=== PATIENT | male | born 1975 | race Caucasian/White ===

== ENCOUNTER 2018-05-29 10:55 | Emergency (ER) | payer MEDICAID ==
[~2018-05-29] VITALS: Ht 177.8 cm; Wt 77.1 kg
[2018-05-29] MEDS ORDERED: KETOROLAC TROMETHAMINE INJ 60 MG/2 ML VIAL IM ONE ×2 (11:18→11:30)
[2018-05-29] MEDS ORDERED: DEXAMETHASONE SOD PHOSPHATE 10 MG/ML VIAL ONE (11:18)
[2018-05-29] MEDS ORDERED: CYCLOBENZAPRINE 10 MG TABLET ONE (11:19)
[2018-05-29] MEDS ORDERED: DEXAMETHASONE SOD PHOSPHATE 4 MG/ML VIAL IM ONE (11:30)
[2018-05-29] MEDS ORDERED: CYCLOBENZAPRINE 10 MG TABLET PO ONE (11:30)
[2018-05-29 12:10] VITALS: BP 122/72
== END 2018-05-29 12:23 | disposition home or self-care (01) ==
LOC: ER 11:04
DX: M54.5 Low back pain (principal); G89.29 Other chronic pain
CPT/HCPCS: 96372 ×2; 99283; J1100; J1885

== ENCOUNTER 2018-08-01 09:33 | Emergency (ER) | payer MEDICAID ==
[~2018-08-01] VITALS: Ht 177.8 cm; Wt 72.6 kg
[2018-08-01 09:40] VITALS: BP 108/77
== END 2018-08-01 10:03 | disposition home or self-care (01) ==
LOC: ER 09:33
DX: J32.8 Other chronic sinusitis (principal)

== ENCOUNTER 2019-08-14 11:21 | Emergency (ER) | payer SELFPAY ==
[~2019-08-14] VITALS: Ht 175.3 cm; Wt 68.9 kg
[2019-08-14 12:16] VITALS: BP 109/65
--- NOTE | 2019-08-14 13:14 | NUR ---
PT SEEN AND EXAMINED BY .
[2019-08-14] MEDS ORDERED: ONDANSETRON 4 MG TAB.RAPDIS ONE (13:29)
[2019-08-14] MEDS ORDERED: MORPHINE SULFATE INJ 4 MG/ML DISP.SYRIN ONE (13:29)
[2019-08-14] MEDS ORDERED: ONDANSETRON HCL/PF 4 MG/2 ML VIAL IV ONE (13:30)
[2019-08-14] MEDS ORDERED: MORPHINE SULFATE INJ 2 MG/ML DISP.SYRIN IV ONE (13:30)
--- NOTE | 2019-08-14 13:40 | NUR ---
Patient discharged to home in stable condition. Written and verbal after care instructions given. Patient verbalizes understanding of instruction.
[2019-08-14] MEDS ORDERED: ONDANSETRON 4 MG TAB.RAPDIS SL ONE (14:00)
[2019-08-14] MEDS ORDERED: MORPHINE SULFATE INJ 2 MG/ML DISP.SYRIN IM ONE (14:00)
== END 2019-08-14 13:41 | disposition home or self-care (01) ==
LOC: ER 11:21
DX: M54.41 Lumbago with sciatica, right side (principal); G89.29 Other chronic pain
CPT/HCPCS: 96372; 99283; J2270; Q0162